=== PATIENT | male | born 1975 | race Hispanic/Latino ===

== ENCOUNTER 2019-10-09 17:57 | Emergency (ER) | payer OTHER ==
[2019-10-09 18:44] VITALS: BP 127/89; TEMP 98; O2SAT 97
== END 2019-10-09 18:34 | disposition home or self-care (01) ==
LOC: ER 17:57
DX: Z02.79 Encounter for issue of other medical certificate (principal); F17.210 Nicotine dependence, cigarettes, uncomplicated
CPT/HCPCS: 99281

== ENCOUNTER 2022-11-19 04:08 | Emergency (ER) | payer OTHER ==
--- NOTE | 2022-11-19 04:23 | ER ---
Nurse's Notes [facility] Name: Paul Greenfield Age: 47 yrs Sex: Male : 1975 Arrival Date: 11/19/2022 Time: 04:08 Bed 12 Private MD: Diagnosis: Pharyngitis Presentation: 11/19 04:21 Chief complaint: Patient states: sore throat ear pain began x 2 days worse this am. kd3 Coronavirus screen: Vaccine status: Patient reports being unvaccinated. Ebola Screen: Patient negative for fever greater than or equal to 101.5 degrees Fahrenheit, and additional compatible Ebola Virus Disease symptoms. Initial Sepsis Screen: Does the patient meet any 2 criteria? No. Patient's initial sepsis screen is negative. Does the patient have a suspected source of infection? No. Patient's initial sepsis screen is negative. Risk Assessment: Do you want to hurt yourself or someone else? Patient reports no desire to harm self or others. 04:21 Method Of Arrival: Ambulatory kd3 04:21 Acuity: LADARIUS 4 kd3 Triage Assessment: 04:23 General: Appears uncomfortable, Behavior is calm, cooperative. Pain: Complains of pain kd3 in throat ears. EENT: Reports difficulty swallowing nasal congestion. Historical: - Allergies: 04:23 No Known Allergies; kd3 - Home Meds: 04:23 None [Active]; kd3 - PMHx: 04:23 None; kd3 - PSHx: 04:23 None; spinal fusion; kd3 - Immunization history:: Adult Immunizations not up to date. - Social history:: Smoking status: Patient reports the use of cigarette tobacco products, smokes one-half pack cigarettes per day, Reported history of juuling and/or vaping. Screenin:30 [facility] ED Fall Risk Assessment (Adult) History of falling in the last 3 months, kd3 including since admission No falls in past 3 months (0 pts) Confusion or Disorientation No (0 pts) Intoxicated or Sedated No (0 pts) Impaired Gait No (0 pts) Mobility Assist Device Used No (0 pt) Altered Elimination No (0 pt) Score/Fall Risk Level 0 - 2 = Low Risk. Abuse screen: Denies threats or abuse. Nutritional screening: No deficits noted. Tuberculosis screening: No symptoms or risk factors identified. Assessment: 04:29 Reassessment: Patient appears in no apparent distress at this time. Respiratory: Airway kd3 is patent Trachea midline Respiratory effort is even, unlabored, Breath sounds are clear bilaterally. EENT: Throat is reddened. Vital Signs: 04:21 BP 153 / 100; Pulse 74; Resp 18; Temp 97.3; Pulse Ox 98% ; Weight 95.25 kg; Height 5 kd3 ft. 9 in. ; Pain 8/10; 04:21 Body Mass Index 31.01 (95.25 kg, 175.26 cm) kd3 04:21 Pain Scale: Adult kd3 ED Course: 04:11 Patient arrived in ED. ag3 04:16 Chase Askew MD is Attending Physician. sp3 04:22 Triage completed. kd3 04:30 Patient has correct armband on for positive identification. kd3 04:30 No provider procedures requiring assistance completed. Patient did not have IV access kd3 during this emergency room visit. Administered Medications: 04:19 Drug: Dexamethasone IM 10 mg Route: IM; Site: right deltoid; kd3 04:29 Follow up: Response: No adverse reaction kd3 Medication: 04:30 VIS not applicable for this client. kd3 Outcome: 04:22 Discharge ordered by . sp3 04:30 Patient left the ED. kd3 Signatures: Pooja Maloney ag3 Chase Askew MD MD sp3 Mayte Callahan, RN RN kd3
--- NOTE | 2022-11-19 04:23 | EDPHYS ---
Physician Documentation [facility] Name: Paul Greenfield Age: 47 yrs Sex: Male : 1975 Arrival Date: 11/19/2022 Time: 04:08 Bed 12 Private MD: ED Physician Chase Askew HPI: 11/19 04:20 This 47 yrs old Male presents to ER via Unassigned with complaints of Sore sp3 Throat. 04:20 47-year-old male with no significant past medical history presents to the ED with sore sp3 throat x3 days. Tonight he woke up coughing and significant increased pain including difficulty swallowing. He still has the ability to swallow and is able to manage his secretions however it is the pain that brought him in. Denies any neck swelling, lymph node swelling, chest pain, shortness of breath, fever, neck pain and stiffness, headache, known sick contacts, travel history, any other signs or symptoms on ROS at this time.. Historical: - Allergies: 04:23 No Known Allergies; kd3 - Home Meds: 04:23 None [Active]; kd3 - PMHx: 04:23 None; kd3 - PSHx: 04:23 None; spinal fusion; kd3 - Immunization history:: Adult Immunizations not up to date. - Social history:: Smoking status: Patient reports the use of cigarette tobacco products, smokes one-half pack cigarettes per day, Reported history of juuling and/or vaping. ROS: 04:20 Constitutional: Negative for fever, chills, and weight loss, Eyes: Negative for injury, sp3 pain, redness, and discharge, Neck: Negative for injury, pain, and swelling, Cardiovascular: Negative for chest pain, palpitations, and edema, Respiratory: Negative for shortness of breath, cough, wheezing, and pleuritic chest pain, Abdomen/GI: Negative for abdominal pain, nausea, vomiting, diarrhea, and constipation, Back: Negative for injury and pain, MS/Extremity: Negative for injury and deformity, Skin: Negative for injury, rash, and discoloration, Neuro: Negative for headache, weakness, numbness, tingling, and seizure. 04:20 All other systems are negative. Exam: 04:21 Constitutional: This is a well developed, well nourished patient who is awake, alert, sp3 and in no acute distress. Head/Face: Normocephalic, atraumatic. Eyes: Pupils equal round and reactive to light, extra-ocular motions intact. Lids and lashes normal. Conjunctiva and sclera are non-icteric and not injected. Cornea within normal limits. Periorbital areas with no swelling, redness, or edema. Neck: Trachea midline, no thyromegaly or masses palpated, and no cervical lymphadenopathy. Supple, full range of motion without nuchal rigidity, or vertebral point tenderness. No Meningismus. Chest/axilla: Normal chest wall appearance and motion. Nontender with no deformity. No lesions are appreciated. Cardiovascular: Regular rate and rhythm with a normal S1 and S2. No gallops, murmurs, or rubs. Normal PMI, no JVD. No pulse deficits. Respiratory: Lungs have equal breath sounds bilaterally, clear to auscultation and percussion. No rales, rhonchi or wheezes noted. No increased work of breathing, no retractions or nasal flaring. Abdomen/GI: Soft, non-tender, with normal bowel sounds. No distension or tympany. No guarding or rebound. No evidence of tenderness throughout. Back: No spinal tenderness. No costovertebral tenderness. Full range of motion. Skin: Warm, dry with normal turgor. Normal color with no rashes, no lesions, and no evidence of cellulitis. MS/ Extremity: Pulses equal, no cyanosis. Neurovascular intact. Full, normal range of motion. Neuro: Awake and alert, GCS 15, oriented to person, place, time, and situation. Cranial nerves II-XII grossly intact. Motor strength 5/5 in all extremities. Sensory grossly intact. Cerebellar exam normal. Normal gait. 04:21 ENT: Pharyngeal erythema noted without tonsillar involvement. There is no unilateral swelling and uvula is midline. Patient is able to maintain his secretions without difficulty. Vital signs normal.. Vital Signs: 04:21 BP 153 / 100; Pulse 74; Resp 18; Temp 97.3; Pulse Ox 98% ; Weight 95.25 kg; Height 5 kd3 ft. 9 in. ; Pain 8/10; 04:21 Body Mass Index 31.01 (95.25 kg, 175.26 cm) kd3 04:21 Pain Scale: Adult kd3 MDM: 04:19 Patient medically screened. sp3 04:21 Data reviewed: vital signs, nurses notes. ED course: We will treat symptomatically. sp3 Decadron 10 mg IM patient will go home on an NSAID plus Augmentin p.o. Follow-up with PCP as needed.. Administered Medications: 04:19 Drug: Dexamethasone IM 10 mg Route: IM; Site: right deltoid; kd3 04:29 Follow up: Response: No adverse reaction kd3 Disposition Summary: 11/19/22 04:22 Discharge Ordered Location: Home sp3 Condition: Stable sp3 Diagnosis - Pharyngitis sp3 Followup: sp3 - With: Private Physician - When: Upon discharge from the Emergency Department - Reason: Continuance of care Discharge Instructions: - Discharge Summary Sheet sp3 - Pharyngitis sp3 Forms: - Medication Reconciliation Form sp3 - Thank You Letter sp3 - Antibiotic Education sp3 - Prescription Opioid Use sp3 - Work release form kd3 Prescriptions: - Augmentin 875-125 mg Oral Tablet - take 1 tablet by ORAL route every 12 hours for 10 days; 20 tablet; Refills: 0, sp3 Product Selection Permitted - Diclofenac Sodium 75 mg Oral Tablet Sustained Release - take 1 tablet by ORAL route 2 times per day; 30 tablet; Refills: 0, Product sp3 Selection Permitted Signatures: Chase Askew MD MD sp3 Mayte Callahan RN RN kd3
[2022-11-19 04:39] VITALS: BP 153/100; TEMP 97.3; O2SAT 98
== END 2022-11-19 04:30 | disposition home or self-care (01) ==
LOC: ER 04:08
DX: J02.9 Acute pharyngitis, unspecified (principal)